=== PATIENT | male | born 1960 | race Caucasian/White ===

== ENCOUNTER → 2023-09-18 13:59 | Outpatient (BNVA) | payer OTHER, SELFPAY | PROVIDERS: Visit Provider Registered Nurse Neonatal Intensive Care | DX: M79.645 Pain in left finger(s) (principal) | CPT/HCPCS: 73130 ==

== ENCOUNTER → 2024-09-29 12:34 | Outpatient (BNVA) | payer OTHER, SELFPAY | PROVIDERS: PCP Family Medicine; Visit Provider Internal Medicine | DX: R07.9 Chest pain, unspecified (principal); I49.8 Other specified cardiac arrhythmias; Z95.0 Presence of cardiac pacemaker | CPT/HCPCS: 93005 ==